=== PATIENT | female | born 1955 | race Caucasian/White ===

== ENCOUNTER 2024-03-08 16:54 | Emergency (ER) | payer MEDICARE ==
[2024-03-08] MEDS ORDERED: Sodium Chloride 0.9% 10 ML Syringe FLUSH PRN (17:24)
[2024-03-08] MEDS: cefTRIAXone 2 GM Vial IVPUSH ONE (18:07)
[2024-03-08 18:09] LABS: BASOPHILS PERCENT AUTO 0.1 % (0.2-1.2); EOSINOPHILS ABSOLUTE AUTO 0.1 x10^3/uL (0.0-0.5); EOSINOPHILS PERCENT AUTO 0.6 % (0.0-4.0); HEMATOCRIT 33.2 % (33.0-47.0); IMMATURE GRAN ABSOLUTE AUTO 0.02 x10^3/uL (0.00-0.07); LYMPHOCYTES ABSOLUTE AUTO 0.4 x10^3/uL (1.0-4.8); MEAN CORPUSCULAR HEMOGLOBIN 28.6 pg (26.0-32.0); MEAN CORPUSCULAR HGB CONC 33.1 g/dL (32.0-36.0); MEAN CORPUSCULAR VOLUME 86.2 fL (78.0-93.0); MONOCYTES ABSOLUTE AUTO 0.4 x10^3/uL (0.0-0.8); MONOCYTES PERCENT AUTO 2.8 % (2.0-11.0); NEUTROPHILS ABSOLUTE AUTO 13.1 x10^3/uL (1.8-7.7); NEUTROPHILS PERCENT AUTO 93.7 % (50.0-80.0); PLATELET COUNT,PLT 317 x10^3/uL (130-400); RED BLOOD CELL COUNT 3.85 x10^6/uL (4.00-5.50); WHITE BLOOD CELL COUNT,WBC 13.9 x10^3/uL (4.0-10.0)
[2024-03-08 18:17] LABS: LYMPHOCYTES PERCENT AUTO 2.7 % (25.0-50.0)
[2024-03-08 18:23] LABS: LACTIC ACID 1.5 mmol/L (0.4-2.0)
[2024-03-08 18:30] LABS: A/G RATIO 0.43; ALANINE AMINOTRANSFERASE,ALT 17 U/L (14-59); ALBUMIN 2.3 g/dL (3.4-5.0); ALKALINE PHOSPHATASE 120 U/L (46-116); ASPARTATE AMNIOTRANSFERASE,AST 15 U/L (15-37); BILIRUBIN TOTAL 0.5 mg/dL (0.2-1.0); BLOOD UREA NITROGEN,BUN 46 mg/dL (7-18); CALCIUM 9.1 mg/dL (8.5-10.1); CARBON DIOXIDE,CO2 25 mmol/L (21-32); CHLORIDE,CL 93 mmol/L (98-107); CREATININE 1.6 mg/dL (0.55-1.02); ESTIMATED GFR 34 mL/min (>=60); GLUCOSE RANDOM 152 mg/dL (70-99); MAGNESIUM 1.3 mg/dL (1.8-2.4); PROTEIN TOTAL,TP 7.6 g/dL (6.4-8.2); SODIUM,NA 131 mmol/L (136-145)
[2024-03-08] MEDS: Sodium Chloride 0.9% 1,000 ML IV ONE (18:50)
[2024-03-08] MEDS: Doxycycline Monohydrate 100 MG Cap PO ONE (19:07)
[2024-03-08 20:14] VITALS: BP 133/83; PULSE 93
== END 2024-03-08 20:27 | disposition home or self-care (01) ==
LOC: VM.ED 16:54
DX: N39.0 Urinary tract infection, site not specified (principal); E86.0 Dehydration; E87.1 Hypo-osmolality and hyponatremia; Z88.8 Allergy status to other drugs, medicaments and biological substances
CPT/HCPCS: 36415; 71045; 80053; 83605; 83735; 85025; 86140; 87040; 87428-QW; 96361; 96374; 99284; 99284-25; A9270-GY; J0696; J7030

== ENCOUNTER 2024-05-27 10:21 | Emergency (ER) | payer MEDICARE ==
[2024-05-27] MEDS ORDERED: Sodium Chloride 0.9% 10 ML Syringe FLUSH PRN (10:40)
[2024-05-27 10:47] LABS: BASOPHILS PERCENT AUTO 0.1 % (0.2-1.2); EOSINOPHILS ABSOLUTE AUTO 0.1 x10^3/uL (0.0-0.5); EOSINOPHILS PERCENT AUTO 1.1 % (0.0-4.0); HEMATOCRIT 36.8 % (33.0-47.0); HEMOGLOBIN 11.8 g/dL (12.0-16.0); IMMATURE GRAN ABSOLUTE AUTO 0.05 x10^3/uL (0.00-0.07); LYMPHOCYTES ABSOLUTE AUTO 0.5 x10^3/uL (1.0-4.8); LYMPHOCYTES PERCENT AUTO 4.6 % (25.0-50.0); MEAN CORPUSCULAR HEMOGLOBIN 27.5 pg (26.0-32.0); MEAN CORPUSCULAR HGB CONC 32.1 g/dL (32.0-36.0); MEAN CORPUSCULAR VOLUME 85.8 fL (78.0-93.0); MONOCYTES ABSOLUTE AUTO 0.7 x10^3/uL (0.0-0.8); MONOCYTES PERCENT AUTO 6.4 % (2.0-11.0); NEUTROPHILS ABSOLUTE AUTO 9.8 x10^3/uL (1.8-7.7); NEUTROPHILS PERCENT AUTO 87.4 % (50.0-80.0); RED BLOOD CELL COUNT 4.29 x10^6/uL (4.00-5.50); WHITE BLOOD CELL COUNT,WBC 11.2 x10^3/uL (4.0-10.0)
[2024-05-27 10:59] LABS: PLATELET COUNT,PLT 278 x10^3/uL (130-400)
[2024-05-27 11:05] LABS: BILIRUBIN,URINE NEGATIVE (NEGATIVE); COLOR,URINE YELLOW (YELLOW); GLUCOSE,URINE 500 mg/dL (NEGATIVE); KETONES,URINE NEGATIVE (NEGATIVE); LEUKOCYTE ESTERASE,URINE MODERATE (NEGATIVE); NITRITE,URINE NEGATIVE (NEGATIVE); OCCULT BLOOD,URINE TRACE-INTACT (NEGATIVE); PROTEIN,URINE NEGATIVE (NEGATIVE); UROBILINOGEN,URINE 0.2 EU/dL (0.2)
[2024-05-27 11:13] LABS: APPEARANCE,URINE SLIGHTLY CLOUDY (CLEAR)
[2024-05-27 11:14] LABS: A/G RATIO 0.54; ALANINE AMINOTRANSFERASE,ALT 15 U/L (14-59); ALBUMIN 2.6 g/dL (3.4-5.0); ALKALINE PHOSPHATASE 87 U/L (46-116); ASPARTATE AMNIOTRANSFERASE,AST 30 U/L (15-37); BILIRUBIN TOTAL 0.5 mg/dL (0.2-1.0); BLOOD UREA NITROGEN,BUN 40 mg/dL (7-18); CALCIUM 9.2 mg/dL (8.5-10.1); CARBON DIOXIDE,CO2 26 mmol/L (21-32); CHLORIDE,CL 98 mmol/L (98-107); CREATININE 1.4 mg/dL (0.55-1.02); GLUCOSE RANDOM 192 mg/dL (70-99); POTASSIUM,K 4.6 mmol/L (3.5-5.1); PROTEIN TOTAL,TP 7.4 g/dL (6.4-8.2); SODIUM,NA 135 mmol/L (136-145)
[2024-05-27 11:14] LABS: BACTERIA,URINE MODERATE /HPF (NOT SEEN); MUCUS,URINE OCCASIONAL /LPF (NOT SEEN); SQUAMOUS EPITHELIAL CELLS,UR OCCASIONAL /HPF (NOT SEEN); WBC,URINE 30-40 /HPF (NOT SEEN)
[2024-05-27 11:15] LABS: ANION GAP 15.6 mmol/L (5-15); ESTIMATED GFR 40 mL/min (>=60)
[2024-05-27] MEDS: cefTRIAXone 1 GM Vial IVPUSH ONE (11:46)
== END 2024-05-27 12:34 ==
LOC: VM.ED 10:21
DX: N30.00 Acute cystitis without hematuria (principal); Z88.8 Allergy status to other drugs, medicaments and biological substances
CPT/HCPCS: 70450; 80053; 81001; 84484; 85025; 87086; 87088; 87186; 93005; 93010; 96374; 99284; 99285-25; J0696

== ENCOUNTER 2024-07-10 16:07 | Inpatient (IN) | payer MEDICARE, MEDICAID ==
[2024-07-10] MEDS ORDERED: Acetaminophen 325 MG Tab PO PRN (16:37)
[2024-07-10] MEDS ORDERED: Sodium Chloride 0.9% 10 ML Syringe FLUSH PRN (16:44)
[2024-07-10] MEDS ORDERED: Ondansetron 4 MG/2 ML SDV IV PRN (16:44)
[2024-07-10] MEDS ORDERED: Ondansetron 4 MG Tab.DIS PO PRN (16:44)
[2024-07-10] MEDS ORDERED: Acetaminophen/oxyCODONE 325-5 MG Tab PO PRN (16:44)
[2024-07-10] MEDS ORDERED: Loperamide 2 MG Cap PO PRN (16:58)
[2024-07-10] MEDS ORDERED: Vitamins A and D Oint 113 GM Tube TOP PRN (16:58)
[2024-07-10] MEDS: Sodium Chloride 0.9% 1,500 ML IV ONE (17:22)
[2024-07-10] MEDS: Cefepime 1 GM in Sodium Chloride 0.9% 100 ML IV ONE (18:49)
[2024-07-10] MEDS: Cranberry 500 MG Cap PO SCH (18:55)
[2024-07-10 19:09] LABS: LACTIC ACID 3.3 mmol/L (0.4-2.0)
[2024-07-10] MEDS: Clopidogrel 75 MG Tab PO SCH (20:05)
[2024-07-10] MEDS: Pregabalin 50 MG Cap PO SCH (20:06)
[2024-07-10] MEDS: atorvaSTATin 40 MG Tab PO SCH (20:06)
[2024-07-10] MEDS: Magnesium Oxide 400 MG Tab PO SCH (20:06)
[2024-07-11] MEDS: Cefepime 1 GM in Sodium Chloride 0.9% 100 ML IV SCH (05:57)
[2024-07-11 06:41] LABS: BASOPHILS PERCENT AUTO 0.4 % (0.2-1.2); EOSINOPHILS ABSOLUTE AUTO 0.3 x10^3/uL (0.0-0.5); EOSINOPHILS PERCENT AUTO 4.7 % (0.0-4.0); HEMATOCRIT 30.1 % (33.0-47.0); HEMOGLOBIN 9.3 g/dL (12.0-16.0); IMMATURE GRAN ABSOLUTE AUTO 0.01 x10^3/uL (0.00-0.07); LYMPHOCYTES ABSOLUTE AUTO 0.6 x10^3/uL (1.0-4.8); LYMPHOCYTES PERCENT AUTO 7.8 % (25.0-50.0); MEAN CORPUSCULAR HEMOGLOBIN 25.9 pg (26.0-32.0); MEAN CORPUSCULAR HGB CONC 30.9 g/dL (32.0-36.0); MEAN CORPUSCULAR VOLUME 83.8 fL (78.0-93.0); MONOCYTES ABSOLUTE AUTO 0.9 x10^3/uL (0.0-0.8); MONOCYTES PERCENT AUTO 12.3 % (2.0-11.0); NEUTROPHILS ABSOLUTE AUTO 5.3 x10^3/uL (1.8-7.7); NEUTROPHILS PERCENT AUTO 74.7 % (50.0-80.0); PLATELET COUNT,PLT 195 x10^3/uL (130-400); RED BLOOD CELL COUNT 3.59 x10^6/uL (4.00-5.50); WHITE BLOOD CELL COUNT,WBC 7.1 x10^3/uL (4.0-10.0)
[2024-07-11 06:56] LABS: CALCIUM 8.7 mg/dL (8.5-10.1); CREATININE 1.4 mg/dL (0.55-1.02); EST CRCL DRUG DOSING (CG) 30.49 mL/min; POTASSIUM,K 3.7 mmol/L (3.5-5.1)
[2024-07-11 07:01] LABS: ANION GAP 11.7 mmol/L (5-15)
[2024-07-11] MEDS: Pantoprazole 40 MG Tab.CR PO SCH (08:46)
[2024-07-11] MEDS: DULoxetine 60 MG Cap PO SCH (08:46)
[2024-07-11] MEDS: Cholecalciferol (Vitamin D3) 25 MCG Tab PO SCH (08:46)
[2024-07-11] MEDS: predniSONE 1 MG Tab PO SCH (08:46)
[2024-07-11] MEDS: Vitamin B Complex Tab PO SCH (08:47)
[2024-07-11] MEDS: Aspirin 81 MG Tab.EC PO SCH (08:47)
[2024-07-11] MEDS: Ipratropium 0.06% Nasal Spray 15 ML Bottle NASBOTH SCH (08:51)
[2024-07-12 07:02] LABS: BASOPHILS PERCENT AUTO 0.8 % (0.2-1.2); EOSINOPHILS ABSOLUTE AUTO 0.6 x10^3/uL (0.0-0.5); EOSINOPHILS PERCENT AUTO 11.6 % (0.0-4.0); HEMATOCRIT 28.4 % (33.0-47.0); IMMATURE GRAN ABSOLUTE AUTO 0.01 x10^3/uL (0.00-0.07); LYMPHOCYTES ABSOLUTE AUTO 0.7 x10^3/uL (1.0-4.8); LYMPHOCYTES PERCENT AUTO 13.6 % (25.0-50.0); MEAN CORPUSCULAR HEMOGLOBIN 26.2 pg (26.0-32.0); MEAN CORPUSCULAR HGB CONC 31.7 g/dL (32.0-36.0); MEAN CORPUSCULAR VOLUME 82.8 fL (78.0-93.0); MONOCYTES ABSOLUTE AUTO 0.3 x10^3/uL (0.0-0.8); MONOCYTES PERCENT AUTO 6.2 % (2.0-11.0); NEUTROPHILS ABSOLUTE AUTO 3.4 x10^3/uL (1.8-7.7); NEUTROPHILS PERCENT AUTO 67.6 % (50.0-80.0); PLATELET COUNT,PLT 210 x10^3/uL (130-400); RED BLOOD CELL COUNT 3.43 x10^6/uL (4.00-5.50)
[2024-07-12 07:09] LABS: CALCIUM 8.5 mg/dL (8.5-10.1); CREATININE 1.3 mg/dL (0.55-1.02); EST CRCL DRUG DOSING (CG) 32.83 mL/min; POTASSIUM,K 3.7 mmol/L (3.5-5.1)
[2024-07-12 07:10] LABS: ANION GAP 9.7 mmol/L (5-15)
[2024-07-13] MEDS: Estradiol 0.01% Vaginal Crm 42.5 GM Tube VAG SCH (00:42)
[2024-07-13 06:46] LABS: BASOPHILS PERCENT AUTO 0.4 % (0.2-1.2); EOSINOPHILS ABSOLUTE AUTO 0.7 x10^3/uL (0.0-0.5); EOSINOPHILS PERCENT AUTO 12.8 % (0.0-4.0); HEMATOCRIT 27.7 % (33.0-47.0); HEMOGLOBIN 8.9 g/dL (12.0-16.0); IMMATURE GRAN ABSOLUTE AUTO 0.01 x10^3/uL (0.00-0.07); LYMPHOCYTES ABSOLUTE AUTO 0.8 x10^3/uL (1.0-4.8); LYMPHOCYTES PERCENT AUTO 14.7 % (25.0-50.0); MEAN CORPUSCULAR HEMOGLOBIN 26.2 pg (26.0-32.0); MEAN CORPUSCULAR HGB CONC 32.1 g/dL (32.0-36.0); MEAN CORPUSCULAR VOLUME 81.5 fL (78.0-93.0); MONOCYTES ABSOLUTE AUTO 0.3 x10^3/uL (0.0-0.8); MONOCYTES PERCENT AUTO 4.8 % (2.0-11.0); NEUTROPHILS ABSOLUTE AUTO 3.5 x10^3/uL (1.8-7.7); NEUTROPHILS PERCENT AUTO 67.1 % (50.0-80.0); PLATELET COUNT,PLT 229 x10^3/uL (130-400); WHITE BLOOD CELL COUNT,WBC 5.2 x10^3/uL (4.0-10.0)
[2024-07-13 07:00] LABS: CALCIUM 8.5 mg/dL (8.5-10.1); CREATININE 1.3 mg/dL (0.55-1.02); EST CRCL DRUG DOSING (CG) 32.83 mL/min; POTASSIUM,K 3.8 mmol/L (3.5-5.1)
[2024-07-13 07:01] LABS: ANION GAP 10.8 mmol/L (5-15)
[2024-07-13] MEDS: Ciprofloxacin 500 MG Tab PO SCH (20:46)
[2024-07-14 06:56] LABS: BASOPHILS ABSOLUTE AUTO 0.1 x10^3/uL (0.0-0.2); EOSINOPHILS ABSOLUTE AUTO 0.5 x10^3/uL (0.0-0.5); EOSINOPHILS PERCENT AUTO 10.5 % (0.0-4.0); HEMATOCRIT 27.9 % (33.0-47.0); HEMOGLOBIN 8.7 g/dL (12.0-16.0); IMMATURE GRAN ABSOLUTE AUTO 0.01 x10^3/uL (0.00-0.07); LYMPHOCYTES ABSOLUTE AUTO 0.7 x10^3/uL (1.0-4.8); LYMPHOCYTES PERCENT AUTO 14.4 % (25.0-50.0); MEAN CORPUSCULAR HEMOGLOBIN 25.8 pg (26.0-32.0); MEAN CORPUSCULAR HGB CONC 31.2 g/dL (32.0-36.0); MEAN CORPUSCULAR VOLUME 82.8 fL (78.0-93.0); MONOCYTES ABSOLUTE AUTO 0.3 x10^3/uL (0.0-0.8); MONOCYTES PERCENT AUTO 5.4 % (2.0-11.0); NEUTROPHILS ABSOLUTE AUTO 3.5 x10^3/uL (1.8-7.7); NEUTROPHILS PERCENT AUTO 68.5 % (50.0-80.0); PLATELET COUNT,PLT 247 x10^3/uL (130-400); RED BLOOD CELL COUNT 3.37 x10^6/uL (4.00-5.50); WHITE BLOOD CELL COUNT,WBC 5.1 x10^3/uL (4.0-10.0)
[2024-07-14 07:06] LABS: ANION GAP 11.9 mmol/L (5-15); CALCIUM 8.5 mg/dL (8.5-10.1); CREATININE 1.2 mg/dL (0.55-1.02); EST CRCL DRUG DOSING (CG) 35.57 mL/min; POTASSIUM,K 3.9 mmol/L (3.5-5.1)
[2024-07-14] MEDS: Torsemide 20 MG Tab PO SCH (08:45)
[2024-07-15 07:51] LABS: BASOPHILS ABSOLUTE AUTO 0.1 x10^3/uL (0.0-0.2); BASOPHILS PERCENT AUTO 0.8 % (0.2-1.2); EOSINOPHILS ABSOLUTE AUTO 0.5 x10^3/uL (0.0-0.5); EOSINOPHILS PERCENT AUTO 8.6 % (0.0-4.0); HEMATOCRIT 32.2 % (33.0-47.0); IMMATURE GRAN ABSOLUTE AUTO 0.01 x10^3/uL (0.00-0.07); LYMPHOCYTES ABSOLUTE AUTO 0.9 x10^3/uL (1.0-4.8); LYMPHOCYTES PERCENT AUTO 15.2 % (25.0-50.0); MEAN CORPUSCULAR HGB CONC 31.1 g/dL (32.0-36.0); MEAN CORPUSCULAR VOLUME 83.9 fL (78.0-93.0); MONOCYTES ABSOLUTE AUTO 0.4 x10^3/uL (0.0-0.8); MONOCYTES PERCENT AUTO 6.1 % (2.0-11.0); NEUTROPHILS ABSOLUTE AUTO 4.1 x10^3/uL (1.8-7.7); NEUTROPHILS PERCENT AUTO 69.1 % (50.0-80.0); PLATELET COUNT,PLT 277 x10^3/uL (130-400); RED BLOOD CELL COUNT 3.84 x10^6/uL (4.00-5.50); WHITE BLOOD CELL COUNT,WBC 5.9 x10^3/uL (4.0-10.0)
[2024-07-15 08:05] LABS: CALCIUM 8.7 mg/dL (8.5-10.1); CREATININE 1.3 mg/dL (0.55-1.02); EST CRCL DRUG DOSING (CG) 32.83 mL/min; POTASSIUM,K 3.6 mmol/L (3.5-5.1)
[2024-07-15 08:06] LABS: ANION GAP 9.6 mmol/L (5-15)
[2024-07-15 10:34] VITALS: BP 157/50; PULSE 75
== END 2024-07-15 10:45 | DRG 871 ==
LOC: VM.MS 16:07
PROVIDERS: ADMIT Internal Medicine; ATTEND Internal Medicine
DX: A41.9 Sepsis, unspecified organism (principal); I50.33 Acute on chronic diastolic (congestive) heart failure; N17.0 Acute kidney failure with tubular necrosis; N30.00 Acute cystitis without hematuria; J84.9 Interstitial pulmonary disease, unspecified; Z66 Do not resuscitate; E11.22 Type 2 diabetes mellitus with diabetic chronic kidney disease; D64.9 Anemia, unspecified; N18.31 Chronic kidney disease, stage 3a; D86.9 Sarcoidosis, unspecified; R65.20 Severe sepsis without septic shock; E83.52 Hypercalcemia; I25.10 Atherosclerotic heart disease of native coronary artery without angina pectoris; G47.33 Obstructive sleep apnea (adult) (pediatric); H91.90 Unspecified hearing loss, unspecified ear; Z88.8 Allergy status to other drugs, medicaments and biological substances; Z79.82 Long term (current) use of aspirin; Z79.52 Long term (current) use of systemic steroids; Z98.890 Other specified postprocedural states; Z79.84 Long term (current) use of oral hypoglycemic drugs; Z95.5 Presence of coronary angioplasty implant and graft; Z79.899 Other long term (current) drug therapy
CPT/HCPCS: 36415; 74150; 80048; 82947; 83605; 85025; 87040; 87070; 97116-GP; 97161-GP; 97165-GO; 97530-GP; 97535-GO; A9270-GY; J0692; J7030; J7512

== ENCOUNTER 2024-08-04 11:49 | Inpatient (IN) | payer MEDICARE ==
[2024-08-04 12:19] LABS: BASOPHILS PERCENT AUTO 0.7 % (0.2-1.2); EOSINOPHILS ABSOLUTE AUTO 0.4 x10^3/uL (0.0-0.5); EOSINOPHILS PERCENT AUTO 6.4 % (0.0-4.0); HEMATOCRIT 33.3 % (33.0-47.0); HEMOGLOBIN 10.5 g/dL (12.0-16.0); IMMATURE GRAN ABSOLUTE AUTO 0.02 x10^3/uL (0.00-0.07); LYMPHOCYTES ABSOLUTE AUTO 0.5 x10^3/uL (1.0-4.8); LYMPHOCYTES PERCENT AUTO 9.1 % (25.0-50.0); MEAN CORPUSCULAR HEMOGLOBIN 25.7 pg (26.0-32.0); MEAN CORPUSCULAR HGB CONC 31.5 g/dL (32.0-36.0); MEAN CORPUSCULAR VOLUME 81.6 fL (78.0-93.0); MONOCYTES ABSOLUTE AUTO 0.4 x10^3/uL (0.0-0.8); MONOCYTES PERCENT AUTO 6.5 % (2.0-11.0); NEUTROPHILS ABSOLUTE AUTO 4.2 x10^3/uL (1.8-7.7); NEUTROPHILS PERCENT AUTO 76.9 % (50.0-80.0); PLATELET COUNT,PLT 214 x10^3/uL (130-400); RED BLOOD CELL COUNT 4.08 x10^6/uL (4.00-5.50); WHITE BLOOD CELL COUNT,WBC 5.5 x10^3/uL (4.0-10.0)
[2024-08-04] MEDS: Acetaminophen 325 MG Tab PO ONE (12:25)
[2024-08-04 12:32] LABS: A/G RATIO 0.73; ALANINE AMINOTRANSFERASE,ALT 16 U/L (14-59); ALBUMIN 2.9 g/dL (3.4-5.0); ALKALINE PHOSPHATASE 79 U/L (46-116); ANION GAP 12.8 mmol/L (5-15); ASPARTATE AMNIOTRANSFERASE,AST 17 U/L (15-37); BILIRUBIN TOTAL 0.5 mg/dL (0.2-1.0); BLOOD UREA NITROGEN,BUN 39 mg/dL (7-18); CARBON DIOXIDE,CO2 30 mmol/L (21-32); CHLORIDE,CL 101 mmol/L (98-107); CREATININE 1.4 mg/dL (0.55-1.02); ESTIMATED GFR 40 mL/min (>=60); GLUCOSE RANDOM 99 mg/dL (70-99); MAGNESIUM 1.6 mg/dL (1.8-2.4); POTASSIUM,K 3.8 mmol/L (3.5-5.1); PROTEIN TOTAL,TP 6.9 g/dL (6.4-8.2); SODIUM,NA 140 mmol/L (136-145)
[2024-08-04 12:33] LABS: CALCIUM 12.7 mg/dL (8.5-10.1)
[2024-08-04] MEDS: Sodium Chloride 0.9% 1,000 ML IV ONE (12:52)
[2024-08-04] MEDS ORDERED: Ondansetron 4 MG Tab.DIS PO PRN (14:07)
[2024-08-04] MEDS: Sodium Chloride 0.9% 1,000 ML IV SCH (14:34)
[2024-08-04] MEDS: Heparin Sodium 5,000 Units/ML Vial SUBCUT SCH (20:51)
[2024-08-05 07:39] LABS: HEMATOCRIT 30.8 % (33.0-47.0); HEMOGLOBIN 9.7 g/dL (12.0-16.0); MEAN CORPUSCULAR HEMOGLOBIN 25.7 pg (26.0-32.0); MEAN CORPUSCULAR HGB CONC 31.5 g/dL (32.0-36.0); MEAN CORPUSCULAR VOLUME 81.7 fL (78.0-93.0); RED BLOOD CELL COUNT 3.77 x10^6/uL (4.00-5.50); WHITE BLOOD CELL COUNT,WBC 4.9 x10^3/uL (4.0-10.0)
[2024-08-05 07:45] LABS: A/G RATIO 0.66; ALBUMIN 2.5 g/dL (3.4-5.0); ANION GAP 12.2 mmol/L (5-15); BILIRUBIN TOTAL 0.4 mg/dL (0.2-1.0); CALCIUM 11.2 mg/dL (8.5-10.1); CREATININE 1.2 mg/dL (0.55-1.02); EST CRCL DRUG DOSING (CG) 34.01 mL/min; POTASSIUM,K 3.2 mmol/L (3.5-5.1); PROTEIN TOTAL,TP 6.3 g/dL (6.4-8.2)
[2024-08-05] MEDS ORDERED: Ondansetron 4 MG Tab.DIS PO PRN (08:28)
[2024-08-05] MEDS ORDERED: MENTHOL TP PRN (08:28)
[2024-08-05] MEDS ORDERED: Vitamins A and D Oint 113 GM Tube TOP PRN (08:28)
[2024-08-05] MEDS ORDERED: Sennosides/Docusate Sodium 50-8.6 MG Tab PO PRN (08:28)
[2024-08-05] MEDS ORDERED: Acetaminophen 650 MG Supp RECTAL PRN (08:28)
[2024-08-05] MEDS ORDERED: Nitroglycerin 2% Oint 1 GM UD Packet TOP PRN (08:28)
[2024-08-05] MEDS ORDERED: Non-Formulary Medication 1 Each (Tirzepatide [Mounjaro] 2.5 MG/0.5 ML Pen.Injctr) SQ SCH (08:30)
[2024-08-05] MEDS ORDERED: ALENDRONATE SODIUM PO SCH (08:30)
[2024-08-05] MEDS ORDERED: VITAMIN D3 PO SCH (08:30)
[2024-08-05] MEDS ORDERED: [UNRECOGNIZED DRUG - OTHER] PO SCH (08:30)
[2024-08-05] MEDS: Non-Formulary Medication 1 Each (Ipratropium [Atrovent 0.03% Nasal Spray] 30 ML Bottle) NASBOTH SCH (09:09)
[2024-08-05] MEDS: predniSONE 1 MG Tab PO SCH (09:29)
[2024-08-05] MEDS: Folic Acid 1 MG Tab PO SCH (09:29)
[2024-08-05] MEDS: Aspirin 81 MG Tab.EC PO SCH (09:29)
[2024-08-05] MEDS: Pregabalin 50 MG Cap PO SCH (09:30)
[2024-08-05] MEDS: Beta-Carotene (Vitamin A) w/Vitamin C & E plus Minerals Tab PO SCH (09:30)
[2024-08-05] MEDS: Potassium Chloride 20 MEQ Tab.ER PO SCH ×2 (09:30→12:05)
[2024-08-05] MEDS: Cranberry 500 MG Cap PO SCH (09:30)
[2024-08-05] MEDS: DULoxetine 60 MG Cap PO SCH (09:30)
[2024-08-05] MEDS: Lactobacillus Rhamnosus GG (Probiotic) Cap PO SCH (09:30)
[2024-08-05] MEDS: Mirabegron 25 MG Tab Extended Release PO SCH (09:31)
[2024-08-05] MEDS: Cholecalciferol (Vitamin D3) 25 MCG Tab PO SCH (09:31)
[2024-08-05] MEDS: Torsemide 20 MG Tab PO SCH (09:31)
[2024-08-05] MEDS: Vitamins A and D Oint 113 GM Tube TOP SCH (09:33)
[2024-08-05] MEDS: Vitamin B Complex Tab PO SCH (09:36)
[2024-08-05] MEDS: Acetaminophen 325 MG Tab PO PRN (10:45)
[2024-08-05] MEDS ORDERED: Loperamide 2 MG Cap PO PRN (11:17)
[2024-08-05] MEDS ORDERED: Menthol 10%/Methyl Salicylate 15% 85 GM Tube TOP PRN (13:59)
[2024-08-05] MEDS: Metoprolol Succinate 25 MG Tab.ER PO SCH (17:20)
[2024-08-05] MEDS: metFORMIN 500 MG Tab PO SCH (17:20)
[2024-08-05] MEDS ORDERED: Potassium Chloride 20 MEQ Tab.ER PO SCH (18:00)
[2024-08-05] MEDS: Ipratropium 0.06% Nasal Spray 15 ML Bottle NASBOTH SCH (20:29)
[2024-08-05] MEDS: Estradiol 0.01% Vaginal Crm 42.5 GM Tube VAG SCH (20:30)
[2024-08-05] MEDS: Clopidogrel 75 MG Tab PO SCH (20:31)
[2024-08-05] MEDS: atorvaSTATin 40 MG Tab PO SCH (20:31)
[2024-08-06] MEDS: Pantoprazole 40 MG Tab.CR PO SCH (06:12)
[2024-08-06 07:34] LABS: HEMOGLOBIN 9.8 g/dL (12.0-16.0); MEAN CORPUSCULAR HEMOGLOBIN 25.8 pg (26.0-32.0); MEAN CORPUSCULAR HGB CONC 31.6 g/dL (32.0-36.0); MEAN CORPUSCULAR VOLUME 81.6 fL (78.0-93.0); RED BLOOD CELL COUNT 3.8 x10^6/uL (4.00-5.50); WHITE BLOOD CELL COUNT,WBC 5.5 x10^3/uL (4.0-10.0)
[2024-08-06 07:41] LABS: A/G RATIO 0.62; ALBUMIN 2.4 g/dL (3.4-5.0); BILIRUBIN TOTAL 0.3 mg/dL (0.2-1.0); CALCIUM 11.3 mg/dL (8.5-10.1); CREATININE 1.2 mg/dL (0.55-1.02); EST CRCL DRUG DOSING (CG) 34.01 mL/min; POTASSIUM,K 3.8 mmol/L (3.5-5.1); PROTEIN TOTAL,TP 6.3 g/dL (6.4-8.2)
[2024-08-06 07:42] LABS: ANION GAP 11.8 mmol/L (5-15)
[2024-08-06] MEDS: Sodium Chloride 0.9% 1,000 ML IV SCH (09:14)
[2024-08-06 19:06] LABS: INTACT PTH 9 pg/mL (15-65)
[2024-08-07] MEDS: Methotrexate 2.5 MG Tab PO SCH (06:16)
[2024-08-07 06:51] LABS: HEMATOCRIT 30.9 % (33.0-47.0); HEMOGLOBIN 9.7 g/dL (12.0-16.0); MEAN CORPUSCULAR HEMOGLOBIN 25.7 pg (26.0-32.0); MEAN CORPUSCULAR HGB CONC 31.4 g/dL (32.0-36.0); MEAN CORPUSCULAR VOLUME 81.7 fL (78.0-93.0); RED BLOOD CELL COUNT 3.78 x10^6/uL (4.00-5.50)
[2024-08-07 07:11] LABS: WHITE BLOOD CELL COUNT,WBC 5.8 x10^3/uL (4.0-10.0)
[2024-08-07 07:15] LABS: A/G RATIO 0.62; ALBUMIN 2.4 g/dL (3.4-5.0); BILIRUBIN TOTAL 0.3 mg/dL (0.2-1.0); CALCIUM 11.8 mg/dL (8.5-10.1); CREATININE 1.3 mg/dL (0.55-1.02); EST CRCL DRUG DOSING (CG) 31.39 mL/min; POTASSIUM,K 3.8 mmol/L (3.5-5.1); PROTEIN TOTAL,TP 6.3 g/dL (6.4-8.2)
[2024-08-07 07:22] LABS: ANION GAP 10.8 mmol/L (5-15)
[2024-08-07] MEDS: predniSONE 20 MG Tab PO SCH (12:39)
[2024-08-08 07:28] LABS: HEMATOCRIT 32.6 % (33.0-47.0); HEMOGLOBIN 10.1 g/dL (12.0-16.0); MEAN CORPUSCULAR HEMOGLOBIN 25.5 pg (26.0-32.0); MEAN CORPUSCULAR VOLUME 82.3 fL (78.0-93.0); RED BLOOD CELL COUNT 3.96 x10^6/uL (4.00-5.50)
[2024-08-08 07:38] LABS: WHITE BLOOD CELL COUNT,WBC 7.7 x10^3/uL (4.0-10.0)
[2024-08-08 07:53] LABS: A/G RATIO 0.63; ALBUMIN 2.6 g/dL (3.4-5.0); ANION GAP 11.6 mmol/L (5-15); BILIRUBIN TOTAL 0.3 mg/dL (0.2-1.0); CREATININE 1.3 mg/dL (0.55-1.02); EST CRCL DRUG DOSING (CG) 31.39 mL/min; POTASSIUM,K 4.6 mmol/L (3.5-5.1); PROTEIN TOTAL,TP 6.7 g/dL (6.4-8.2)
[2024-08-09 19:06] LABS: VIT A INTERPRETATION Normal; VIT A RETINYL PALMITATE 0.02 mg/L (0.00-0.10); VITAMIN A 0.48 mg/L (0.30-1.20)
== END 2024-08-08 12:45 | DRG 641 ==
LOC: VM.ED 11:49 → VM.MS 12:56
PROVIDERS: ADMIT Family Medicine; ATTEND Internal Medicine
DX: E83.52 Hypercalcemia (principal); R51.9 Headache, unspecified; E11.9 Type 2 diabetes mellitus without complications; I13.0 Hypertensive heart and chronic kidney disease with heart failure and stage 1 through stage 4 chronic kidney disease, or unspecified chronic kidney disease; I50.32 Chronic diastolic (congestive) heart failure; Z66 Do not resuscitate; E11.22 Type 2 diabetes mellitus with diabetic chronic kidney disease; W19.XXXA Unspecified fall, initial encounter; G47.33 Obstructive sleep apnea (adult) (pediatric); N18.31 Chronic kidney disease, stage 3a; E11.51 Type 2 diabetes mellitus with diabetic peripheral angiopathy without gangrene; D63.1 Anemia in chronic kidney disease; I25.10 Atherosclerotic heart disease of native coronary artery without angina pectoris; D86.9 Sarcoidosis, unspecified; N32.81 Overactive bladder; M79.2 Neuralgia and neuritis, unspecified; M81.0 Age-related osteoporosis without current pathological fracture; E11.40 Type 2 diabetes mellitus with diabetic neuropathy, unspecified; Z88.3 Allergy status to other anti-infective agents; Z91.048 Other nonmedicinal substance allergy status; Z88.8 Allergy status to other drugs, medicaments and biological substances; Z91.018 Allergy to other foods; Z79.82 Long term (current) use of aspirin; Z79.899 Other long term (current) drug therapy; Z79.52 Long term (current) use of systemic steroids; Z79.84 Long term (current) use of oral hypoglycemic drugs; Z95.1 Presence of aortocoronary bypass graft; Z87.81 Personal history of (healed) traumatic fracture; Z86.69 Personal history of other diseases of the nervous system and sense organs; Z98.890 Other specified postprocedural states
CPT/HCPCS: 36415; 70450; 72125; 80053; 82306; 82947; 83735; 83970; 84443; 84590; 85025; 85027; 85610; 87070; 93005; 93010; 97110-GP; 97116-GP; 97162-GP; 97165-GO; 97535-GO; 99284; 99285; A9270-GY; J1644; J7030; J7512; J8610

== ENCOUNTER 2024-11-17 14:00 | Emergency (ER) | payer MEDICARE, MEDICAID ==
[2024-11-17 14:43] LABS: BASOPHILS ABSOLUTE AUTO 0.0 x10^3/uL (0.0-0.2); BASOPHILS PERCENT AUTO 0.3 % (0.2-1.2); EOSINOPHILS ABSOLUTE AUTO 0.3 x10^3/uL (0.0-0.5); EOSINOPHILS PERCENT AUTO 4.4 % (0.0-4.0); IMMATURE GRAN ABSOLUTE AUTO 0.02 x10^3/uL (0.00-0.07); IMMATURE GRAN PERCENT AUTO 0.30 % (0.00-0.43); LYMPHOCYTES ABSOLUTE AUTO 0.7 x10^3/uL (1.0-4.8); LYMPHOCYTES PERCENT AUTO 10.7 % (25.0-50.0); MONOCYTES ABSOLUTE AUTO 0.4 x10^3/uL (0.0-0.8); MONOCYTES PERCENT AUTO 6.0 % (2.0-11.0); NEUTROPHILS ABSOLUTE AUTO 4.8 x10^3/uL (1.8-7.7); NEUTROPHILS PERCENT AUTO 78.3 % (50.0-80.0); PLATELET COUNT,PLT 205 x10^3/uL (130-400); RED BLOOD CELL COUNT 3.90 x10^6/uL (4.00-5.50)
[2024-11-17 14:54] LABS: WHITE BLOOD CELL COUNT,WBC 6.2 x10^3/uL (4.0-10.0)
[2024-11-17 15:04] LABS: A/G RATIO 0.78; ALANINE AMINOTRANSFERASE,ALT 11.0 U/L (14-59); ASPARTATE AMNIOTRANSFERASE,AST 16.0 U/L (15-37); BILIRUBIN TOTAL 0.3 mg/dL (0.2-1.0); BLOOD UREA NITROGEN,BUN 13.0 mg/dL (7-18); CARBON DIOXIDE,CO2 26.0 mmol/L (21-32); CHLORIDE,CL 104.0 mmol/L (98-107); CREATININE 1.5 mg/dL (0.55-1.02); EST CRCL DRUG DOSING (CG) 27.21 mL/min; ESTIMATED GFR 37.0 mL/min (>=60); GLUCOSE RANDOM 142.0 mg/dL (70-99); POTASSIUM,K 3.8 mmol/L (3.5-5.1); PROTEIN TOTAL,TP 6.6 g/dL (6.4-8.2); SODIUM,NA 141.0 mmol/L (136-145)
[2024-11-17 15:35] LABS: APPEARANCE,URINE SLIGHTLY CLOUDY (CLEAR); GLUCOSE,URINE NEGATIVE (NEGATIVE); OCCULT BLOOD,URINE TRACE-INTACT (NEGATIVE)
[2024-11-17 15:44] LABS: SQUAMOUS EPITHELIAL CELLS,UR MODERATE /HPF (NOT SEEN)
[2024-11-17 15:45] LABS: WBC CASTS,URINE FEW /HPF (NOT SEEN)
== END 2024-11-17 15:54 | disposition home or self-care (01) ==
LOC: VM.ED 14:00
DX: S00.83XA Contusion of other part of head, initial encounter (principal); E11.22 Type 2 diabetes mellitus with diabetic chronic kidney disease; N18.9 Chronic kidney disease, unspecified; Z91.018 Allergy to other foods; Z88.8 Allergy status to other drugs, medicaments and biological substances; Z79.82 Long term (current) use of aspirin; Z79.899 Other long term (current) drug therapy; Z79.02 Long term (current) use of antithrombotics/antiplatelets; Z79.84 Long term (current) use of oral hypoglycemic drugs; Z95.1 Presence of aortocoronary bypass graft; W18.39XA Other fall on same level, initial encounter; Y93.89 Activity, other specified
CPT/HCPCS: 36415; 70486; 80053; 81001; 83735; 85025; 87086; 99284

== ENCOUNTER 2024-12-10 11:57 | Emergency (ER) | payer MEDICARE, MEDICAID ==
[2024-12-10] MEDS ORDERED: Sodium Chloride 0.9% 10 ML Syringe FLUSH PRN (12:05)
[2024-12-10 12:14] LABS: BASOPHILS ABSOLUTE AUTO 0.0 x10^3/uL (0.0-0.2); BASOPHILS PERCENT AUTO 0.2 % (0.2-1.2); EOSINOPHILS ABSOLUTE AUTO 0.2 x10^3/uL (0.0-0.5); EOSINOPHILS PERCENT AUTO 1.6 % (0.0-4.0); IMMATURE GRAN ABSOLUTE AUTO 0.01 x10^3/uL (0.00-0.07); IMMATURE GRAN PERCENT AUTO 0.10 % (0.00-0.43); LYMPHOCYTES ABSOLUTE AUTO 0.5 x10^3/uL (1.0-4.8); LYMPHOCYTES PERCENT AUTO 5.5 % (25.0-50.0); MONOCYTES ABSOLUTE AUTO 0.5 x10^3/uL (0.0-0.8); MONOCYTES PERCENT AUTO 5.4 % (2.0-11.0); NEUTROPHILS ABSOLUTE AUTO 8.5 x10^3/uL (1.8-7.7); NEUTROPHILS PERCENT AUTO 87.2 % (50.0-80.0); PLATELET COUNT,PLT 187 x10^3/uL (130-400); RED BLOOD CELL COUNT 3.89 x10^6/uL (4.00-5.50)
[2024-12-10 12:27] LABS: APPEARANCE,URINE TURBID (CLEAR); GLUCOSE,URINE NEGATIVE (NEGATIVE); OCCULT BLOOD,URINE MODERATE (NEGATIVE)
[2024-12-10 12:31] LABS: WHITE BLOOD CELL COUNT,WBC 9.8 x10^3/uL (4.0-10.0)
[2024-12-10 12:36] LABS: A/G RATIO 0.71; ALANINE AMINOTRANSFERASE,ALT 16 U/L (14-59); ASPARTATE AMNIOTRANSFERASE,AST 15 U/L (15-37); BILIRUBIN TOTAL 0.6 mg/dL (0.2-1.0); BLOOD UREA NITROGEN,BUN 18 mg/dL (7-18); CARBON DIOXIDE,CO2 29 mmol/L (21-32); CHLORIDE,CL 103 mmol/L (98-107); CREATININE 1.4 mg/dL (0.55-1.02); GLUCOSE RANDOM 85 mg/dL (70-99); POTASSIUM,K 3.6 mmol/L (3.5-5.1); PROTEIN TOTAL,TP 6.5 g/dL (6.4-8.2); SODIUM,NA 137 mmol/L (136-145)
[2024-12-10 12:50] LABS: ESTIMATED GFR 40 mL/min (>=60)
[2024-12-10 12:57] LABS: SQUAMOUS EPITHELIAL CELLS,UR NOT SEEN /HPF (NOT SEEN)
== END 2024-12-10 13:33 | disposition home or self-care (01) ==
LOC: VM.ED 11:57
DX: R41.82 Altered mental status, unspecified (principal); N39.0 Urinary tract infection, site not specified; E11.9 Type 2 diabetes mellitus without complications; Z88.8 Allergy status to other drugs, medicaments and biological substances; Z79.82 Long term (current) use of aspirin; Z79.899 Other long term (current) drug therapy
CPT/HCPCS: 36415; 51701; 71045; 80053; 81001; 83605; 83735; 85025; 87040; 87086; 87088; 87186; 96374; 99285; A4315; J0696